=== PATIENT | male | born 1960 | race American Indian/Alaskan Native ===

== ENCOUNTER 2020-10-19 07:58 | Emergency (ER) | payer SELFPAY ==
[2020-10-19] MEDS ORDERED: ASPIRIN 325 MG TAB PO ONE (08:48)
[2020-10-19 09:22] LABS: Basophils % (Auto) 0.6 % (0.0-1.8); Eosinophils # (Auto) 0.1 K/mm3 (0.0-0.4); Eosinophils % (Auto) 2.4 % (0.0-4.3); Hematocrit 42.8 % (35.5-45.6); Hemoglobin 14.2 gm/dl (11.8-15.2); Lymphocytes # (Auto) 2.2 K/mm3 (1.2-5.4); Mean Corpuscular HGB Conc 33 % (32-34); Mean Corpuscular Volume 85 fl (84-94); Monocytes # (Auto) 0.4 K/mm3 (0.0-0.8); Monocytes % (Auto) 8.2 % (0.0-7.3); Platelet Count 222 K/mm3 (140-440); Red Blood Count 5.05 M/mm3 (3.65-5.03); Red Cell Distribution Width 14.7 % (13.2-15.2)
[2020-10-19 09:29] LABS: Alanine Aminotransferase 31 units/L (7-56); Albumin 4.5 g/dL (3.9-5); Blood Urea Nitrogen 12 mg/dL (9-20); Calcium 9.7 mg/dL (8.4-10.2); Hemolysis Index 8
--- NOTE | 2020-10-19 09:30 | XRay Report ---
CHEST 2 VIEWS INDICATION: chest pain. COMPARISON: 08/08/2019 FINDINGS: Support devices: None. Heart: Within normal limits. Lungs: No acute air space or interstitial disease. Pleura: No significant pleural effusion. No pneumothorax. Additional findings: None. IMPRESSION: 1. No acute findings. Signer Name: Cesar Duff MD Signed: 10/19/2020 9:26 AM Workstation Name: [id number]
[2020-10-19 09:32] LABS: BUN/Creatinine Ratio 17
--- NOTE | 2020-10-19 10:01 | Emergency Department Report ---
ED Chest Pain HPI - General Chief Complaint: Chest Pain Stated Complaint: CHEST PAIN Time Seen by Provider: 10/19/20 09:45 Source: patient Mode of arrival: Ambulatory Limitations: No Limitations - History of Present Illness Initial Comments: 59-year-old male, history of hypertension, diabetes, presents to ED with chest pain x3 days. Patient states he is having "discomfort" in the substernal chest. He is unable to characterize any further. Patient states he does a lot of lifting at work. He denies any pain with the action of lifting, states the pain usually comes afterward. He denies any associated nausea, vomiting, shortness of breath, diaphoresis, leg pain or swelling. Patient denies any tobacco use. Patient states he has never had a stress test in the past. MD Complaint: chest pain -: days(s) (3) Onset: during exertion Pain Location: substernal Pain Radiation: none Severity: moderate Severity scale (0 -10): 4 Quality: other ("Discomfort ") Consistency: intermittent Improves With: rest Worsens With: exertion re: denies: nausea, vomting, diaphoresis, dyspnea Other Symptoms: denies: cough, fever Treatments Prior to Arrival: none - Related Data Home Medications Medication Instructions Recorded Confirmed Last Taken metFORMIN [Glucophage] 1,000 mg PO BID 11/09/14 10/19/20 10/19/20 ALPRAZolam [Xanax TAB] 0.5 mg PO DAILY PRN 08/09/19 10/19/20 Unknown Dulaglutide [Trulicity] 0.75 mg SQ 1XW 08/09/19 10/19/20 1 Week Ago ~10/12/20 Lisinopril/Hydrochlorothiazide 20 mg PO DAILY 08/09/19 10/19/20 10/19/20 [Zestoretic 10-12.5 mg Tablet] Sitagliptin Phosphate [Januvia] 100 mg PO DAILY 08/09/19 10/19/20 10/19/20 Previous Rx's Medication Instructions Recorded Last Taken Type Benzonatate [Tessalon Perles] 100 mg PO Q8HR #20 capsule 08/10/19 Unknown Rx Famotidine [Pepcid] 20 mg PO BID #60 tablet 08/10/19 Unknown Rx Butalb/Acetaminophen/Caffeine 1 cap PO Q8HR PRN #6 cap 08/30/19 Unknown Rx [Fioricet 50-300-40 mg CAP] Allergies Allergy/AdvReac Type Severity Reaction Status Date / Time Penicillins AdvReac Unknown Verified 08/30/19 09:06 Heart Score - HEART Score History: Slightly suspicious EKG: Normal Age: 45-65 Risk factors: 1-2 risk factors Troponin: < normal limit HEART Score: 2 - EKG Read Time Time EKG Completed: 08:41 EKG Read Time: 09:44 ED Review of Systems ROS: Stated complaint: CHEST PAIN Other details as noted in HPI Comment: All other systems reviewed and negative Constitutional: denies: chills, fever Respiratory: denies: cough, shortness of breath Cardiovascular: chest pain Gastrointestinal: denies: nausea, vomiting Musculoskeletal: other (Denies leg pain or swelling) ED Past Medical Hx - Past Medical History Previous Medical History?: Yes Hx Hypertension: Yes Hx Congestive Heart Failure: No Hx Diabetes: Yes Hx Asthma: No Hx COPD: No Hx HIV: No - Surgical History Past Surgical History?: No - Social History Smoking Status: Never Smoker Substance Use Type: None - Medications Home Medications: Home Medications Medication Instructions Recorded Confirmed Last Taken Type metFORMIN [Glucophage] 1,000 mg PO BID 11/09/14 10/19/20 10/19/20 History ALPRAZolam [Xanax TAB] 0.5 mg PO DAILY PRN 08/09/19 10/19/20 Unknown History Dulaglutide [Trulicity] 0.75 mg SQ 1XW 08/09/19 10/19/20 1 Week Ago History ~10/12/20 Lisinopril/Hydrochlorothiazide 20 mg PO DAILY 08/09/19 10/19/20 10/19/20 History [Zestoretic 10-12.5 mg Tablet] Sitagliptin Phosphate [Januvia] 100 mg PO DAILY 08/09/19 10/19/20 10/19/20 History Benzonatate [Tessalon Perles] 100 mg PO Q8HR #20 capsule 08/10/19 10/19/20 Un known Rx Famotidine [Pepcid] 20 mg PO BID #60 tablet 08/10/19 10/19/20 Unknown Rx Butalb/Acetaminophen/Caffeine 1 cap PO Q8HR PRN #6 cap 08/30/19 Unknown Rx [Fioricet 50-300-40 mg CAP] ED Physical Exam - General Limitations: No Limitations General appearance: alert, in no apparent distress - Head Head exam: Present: atraumatic, normocephalic - Eye Eye exam: Present: normal appearance, EOMI - ENT ENT exam: Present: mucous membranes moist - Neck Neck exam: Present: normal inspection - Respiratory Respiratory exam: Present: normal lung sounds bilaterally. Absent: respiratory distress, chest wall tenderness - Cardiovascular Cardiovascular Exam: Present: regular rate, normal rhythm - GI/Abdominal GI/Abdominal exam: Present: soft. Absent: distended, tenderness - Extremities Exam Extremities exam: Present: normal inspection. Absent: pedal edema, calf tenderness - Neurological Exam Neurological exam: Present: alert, oriented X3 - Psychiatric Psychiatric exam: Present: normal affect, normal mood - Skin Skin exam: Present: warm, dry, intact, normal color ED Course Vital Signs 10/19/20 10/19/20 10/19/20 08:45 10:03 10:35 Temperature 98.7 F Pulse Rate 72 78 70 Respiratory 20 17 19 Rate Blood Pressure 134/77 Blood Pressure 140/78 155/88 [Right] O2 Sat by Pulse 98 97 98 Oximetry - Reevaluation(s) Reevaluation #1: 10/19/20 10:22 I initially spoke with patient regarding admission and he was okay with that. 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 Patient will sign out AMA. Risks of leaving explained to the patient, including heart attack and . Patient has full decisional capacity. He is alert and oriented x3. Patient information will be faxed to [facility] for urgent cardiology follow-up. Patient has been advised that he can return to the ER at any time. ED Medical Decision Making - Lab Data Result diagrams: 10/19/20 08:54 10/19/20 08:54 - EKG Data -: EKG Interpreted by Me EKG shows normal: sinus rhythm, axis, intervals, QRS complexes, ST-T waves Rate: normal - EKG Data Interpretation: no acute changes - Radiology Data Radiology results: report reviewed, image reviewed - Medical Decision Making 59-year-old male, history of hypertension, diabetes, presents to ED with intermittent exertional chest pain. No chest wall tenderness on exam. EKG and initial troponin are normal. Chest x-ray unremarkable. Patient states he has never had a stress test in the past. Initially attempted to admit the patient, however he stated that he cannot stay. Patient signed out AMA. - Differential Diagnosis ACS, atypical chest pain, pneumonia, CHF Critical care attestation.: If time is entered above; I have spent that time in minutes in the direct care of this critically ill patient, excluding procedure time. ED Disposition Clinical Impression: Acute chest pain Disposition: -07 LEFT AGAINST MED ADVICE Is pt being admited?: Yes Condition: Stable Instructions: Nonspecific Chest Pain, Adult, [id number], Chest Pain (ED) Referrals: RAYO CHRISTIANSON MD [Staff Physician] - 3-5 Days Forms: AMA Form Time of Disposition: 10:24
[2020-10-19 10:35] VITALS: BP 155/88
--- NOTE | 2020-10-23 09:40 | Electrocardiograph Report ---
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
== END 2020-10-19 10:40 | disposition left against medical advice (07) ==
LOC: ED 07:58
DX: R07.89 Other chest pain (principal); I10 Essential (primary) hypertension; E11.9 Type 2 diabetes mellitus without complications; Z88.0 Allergy status to penicillin; Z79.899 Other long term (current) drug therapy
CPT/HCPCS: 36415; 71046; 80053; 84484; 85025; 93005

== ENCOUNTER 2021-11-08 19:28 | Emergency (ER) | payer SELFPAY ==
[2021-11-08 21:15] VITALS: BP 152/83
== END 2021-11-08 23:00 | disposition left against medical advice (07) ==
LOC: ED 19:28
DX: M54.2 Cervicalgia (principal); M54.9 Dorsalgia, unspecified; Z53.21 Procedure and treatment not carried out due to patient leaving prior to being seen by health care provider